=== PATIENT | female | born 1955 | race Two or more races ===

== ENCOUNTER → 2024-03-18 | Outpatient (CLI) | payer MEDICARE, SELFPAY ==
[2024-03-18 12:33] LABS: Basophils # (Auto) 0.1 Thou/mm3 (0.0-0.2); Basophils % (Auto) 2 % (0-2.5); Eosinophils # (Auto) 0.1 Thou/mm3 (0.0-0.5); Eosinophils % (Auto) 2 % (0-10); Hematocrit 33.2 % (36.0-46.0); Hemoglobin 10.6 g/dL (12.0-16.0); Immature Granulocytes % (Auto) 0 % (0-0); Immature Granulocytes Auto 0.01 Thou/mm3 (0.00-0.00); Lymphocytes # (Auto) 1.3 Thou/mm3 (1.0-4.8); Lymphocytes % (Auto) 32 % (10-50); Mean Corpuscular HGB Conc 31.9 g/dl (31.0-37.0); Mean Corpuscular Hemoglobin 27.1 pg (25.0-35.0); Mean Corpuscular Volume 85 fL (80-100); Monocytes # (Auto) 0.5 Thou/mm3 (0.0-0.8); Monocytes % (Auto) 13 % (0-12); Neutrophils # (Auto) 2.1 Thou/mm3 (1.8-7.7); Neutrophils % (Auto) 52 % (37-80); Nucleated Red Blood Cell % 0 /100 WBC (0); RDW Standard Deviation 58.4 fL (36.4-46.3); Red Blood Count 3.91 Miln/mm3 (4.00-5.20)
[2024-03-18 12:42] LABS: Platelet Count 67 Thou/mm3 (140-440)
[2024-03-18 12:48] LABS: Vitamin B12 1279 pg/mL (211-911)
[2024-03-18 12:49] LABS: Alanine Aminotransferase 20 U/L (10-49); Albumin, Serum 3.5 gm/dL (3.4-4.8); Albumin/Globulin Ratio 1.2 (1.2-2.2); Alkaline Phosphatase 53 U/L (46-116); Anion Gap 4 (7-16); Aspartate Amino Transferase 38 U/L (0-34); BUN/Creatinine Ratio 18 Ratio (12-20); Bilirubin,Total 2.4 mg/dL (0.3-1.2); Blood Urea Nitrogen 14 mg/dL (9-23); Calcium (Corrected) 9.4 mg/dL (8.5-10.1); Carbon Dioxide 25.3 mMol/L (20.0-31.0); Chloride 112 mMol/L (98-107); Creatinine (Component) 0.8 mg/dL (0.6-1.3); Globulin 2.9 gm/dL (2.3-3.5); Glucose 74 mg/dL (74-106); Osmolality,Calculated 280 (275-295); Sodium 141 mMol/L (136-145); Total Protein 6.4 gm/dL (5.7-8.2); eGFR > 60 See Note
[2024-03-18 13:02] LABS: Ferritin 10 ng/mL (7.3-270.7); Total Iron Binding Capacity 381 mcg/dL (250-425)
[2024-03-18 13:12] LABS: Iron 77 mcg/dL (50-170); Percent Iron Saturation 20 % (20-55); Unsaturated Iron Binding 304 (225-295)
[2024-03-18 13:52] LABS: Slide Review Platelets confirmed
== END | disposition home or self-care (01) ==
LOC: SCTO 11:20
PROVIDERS: PCP Obstetrics & Gynecology; Referring Provider Internal Medicine Hematology & Oncology; Visit Provider Internal Medicine Hematology & Oncology
DX: C50.412 Malignant neoplasm of upper-outer quadrant of left female breast (principal); K74.60 Unspecified cirrhosis of liver
CPT/HCPCS: 36415; 80053; 82607; 82728; 82746; 83540; 83550; 85025

== ENCOUNTER 2024-03-25 09:53 | Outpatient (RCR) | payer MEDICARE, SELFPAY | END 2024-04-10 23:59 | disposition home or self-care (01) | LOC: SCTC 09:53 | PROVIDERS: PCP Obstetrics & Gynecology; Referring Provider Obstetrics & Gynecology; Visit Provider Nurse Practitioner Family | DX: D05.12 Intraductal carcinoma in situ of left breast (principal); Z90.12 Acquired absence of left breast and nipple; Z79.810 Long term (current) use of selective estrogen receptor modulators (SERMs); Z17.0 Estrogen receptor positive status [ER+]; Z17.21 Progesterone receptor positive status; D50.9 Iron deficiency anemia, unspecified; M81.0 Age-related osteoporosis without current pathological fracture; D69.6 Thrombocytopenia, unspecified | CPT/HCPCS: 99212; G0463 ==

== ENCOUNTER → 2024-05-31 | Outpatient (CLI) | payer MEDICARE, SELFPAY ==
--- NOTE | 2024-05-31 09:00 | XR_ITS ---
Examination: Breast ultrasound, unilateral, left complete Date and time of exam: May 31, 2024 0916 hours INDICATIONS: Left breast pain beginning 3 months ago, family history breast cancer, mammogram October 28, 2023 posttreatment changes for left breast cancer Technique: Real-time ellre scale ultrasonographic imaging performed left breast including all 4 quadrants as well as nipple retroareolar and axillary region. Findings: No cystic or solid mass Skin thickening and scarring 2 to 3:00 position left breast, noted on the December 03, 2013 exam IMPRESSION: BI-RADS Category 2: Benign findings
--- NOTE | 2024-05-31 09:30 | XR_ITS ---
Examination: Diagnostic digital mammography, unilateral, left Computer aided detection 3-D breast Tomosynthesis, unilateral Date and time of exam: May 31, 2024 0926 hours INDICATIONS: History left breast lumpectomy September 2019, left breast pain 3 months Technique: Nonmagnified MLO, CC views of the left breast have been obtained, reconstructed from 3-D Tomosynthesis images. R2 computer aided detection program utilized for evaluation of suspicious masses and/or abnormal calcifications. 3-D Tomosynthesis images obtained. Findings: The breast is heterogeneously dense, which may obscure small masses Scarring and skin thickening left breast again noted consistent with treated left breast cancer No suspicious mass depicted Impression: BI-RADS category 2: Benign findings Recommend yearly follow-up mammography If symptoms persist, recommend repeat less breast sonography in 6 months
== END | disposition home or self-care (01) ==
LOC: CDIM 08:44
PROVIDERS: PCP Nurse Practitioner Family; Referring Provider Nurse Practitioner Family; Visit Provider Nurse Practitioner Family
DX: R92.322 Mammographic fibroglandular density, left breast (principal); R92.1 Mammographic calcification found on diagnostic imaging of breast; Z80.3 Family history of malignant neoplasm of breast
CPT/HCPCS: 76641; 77061; 77065; G0279